=== PATIENT | male | born 1980 | race Asian ===

== ENCOUNTER 2019-08-09 09:34 | Emergency (ER) | payer OTHER ==
--- NOTE | 2019-08-09 09:54 | ED Physician Documentation ---
History of Present Illness - Stated complaint Stated Complaint: HEAD PAIN - Chief complaint Chief Complaint: Neuro - History obtained from History obtained from: Patient - History of Present Illness Timing: How many days ago - Additonal information Additional information: This is a 39-year-old man who presents with his complaints that 3 days ago he felt a little sick with a fever headache chills his whole family is been sick with a "flu" so he just got arrested he felt a little worse 2 days ago and then by that evening he was feeling better and yesterday was starting to feel little bit better until he started to get this headache in the frontal region is the worst that he is ever had. He took Tylenol for it around 8 AM. He ran fever up to 104.3 when he was initially sick and he thinks that he probably had a fever last night as well. He does complain of some mild nasal congestion and is blowing out some yellow mucus. He has not been coughing or felt short of breath. Denies chest pain or ear pain. He did have a panic attack 2 days ago while he was standing brushing his teeth where he felt really dizzy and his eyes were blurry but he went and laid down and it passed. He did not pass out. He has had no nausea or vomiting. Review of Systems Constitutional: reports: Fever, Chills Eyes: denies: Loss of vision Ears: denies: Ear pain Nose: reports: Congestion Throat: denies: Sore throat Cardiac: denies: Palpitations Respiratory: denies: Dyspnea, Cough GI: denies: Nausea, Vomiting Skin: denies: Rash Neurologic: reports: Near syncope, Headache. denies: Numbness, Syncope, LOC Endocrine: reports: Other (He is not a diabetic) PD PAST MEDICAL HISTORY - Past Medical History Cardiovascular: None Respiratory: None Endocrine/Autoimmune: None GI: Other : None HEENT: None Psych: None Musculoskeletal: None Derm: None - Past Surgical History General: Colonoscopy - Present Medications Home Medications: Ambulatory Orders Medication Instructions Recorded Confirmed Amoxicillin 875 mg PO BID #20 tablet 08/09/19 Hydrocodone/Acetaminophen 1 - 2 each PO Q6H PRN #14 tablet 08/09/19 [Hydrocodon-Acetaminophen 5-325] - Allergies Allergies/Adverse Reactions: Allergies Allergy/AdvReac Type Severity Reaction Status Date / Time No Known Drug Allergies Allergy Verified 03/28/16 18:10 - Social History Does the pt smoke?: No Smoking Status: Never smoker Does the pt drink ETOH?: Yes Does the pt have substance abuse?: No - Immunizations Immunizations are current?: Yes PD ED PE NORMAL - Vitals Vital signs reviewed: Yes - General General: Alert and oriented X 3, Well developed/nourished, Other (He keeps reaching up to his frontal forehead and across his eyes with his hand and cannot pushing his hand on his head.) - HEENT HEENT: Atraumatic, PERRL, EOMI, Ears normal, Moist mucous membranes, Other (There is some clear to white thicker mucus in both nostrils bilaterally) - Neck Neck: Supple, no meningeal sign, No adenopathy - Cardiac Cardiac: RRR, No murmur, Strong equal pulses - Respiratory Respiratory: No respiratory distress, Clear bilaterally - Abdomen Abdomen: Normal bowel sounds, Soft, No organomegaly - Derm Derm: Normal color, Warm and dry, No rash - Neuro Neuro: Alert and oriented X 3, 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, No motor deficit, No sensory deficit, Normal speech - Psych Psych: Normal mood, Normal affect Results - Vitals Vitals: Vital Signs - 24 hr 08/09/19 08/09/19 09:40 12:14 Temperature 36.5 C 37.1 C Heart Rate 70 69 Respiratory 18 20 Rate Blood Pressure 118/73 115/61 O2 Saturation 98 98 Oxygen O2 Source Room air - Labs Labs: Laboratory Tests 08/09/19 11:05 Influenza A (Rapid) Negative Influenza B (Rapid) Negative - Rads (name of study) CT head Radiology: EMP read contemporaneously (frontal and ethmoidal sinusitis), See rad report PD MEDICAL DECISION MAKING - ED course Complexity details: reviewed results, re-evaluated patient, d/w patient ED course: Influenza swab was negative. The patient's CT does confirm frontal and ethmoidal sinusitis. He had pain relief only to an 8 out of 10 after 600 mg of ibuprofen he was given hydrocodone tablet. He is discharged with prescriptions for amoxicillin 875 twice daily, hydrocodone for pain. May use ibuprofen [id number]. He is also instructed to use a nasal decongestant like Afrin, steam and [place] pot. Departure - Departure Disposition: 01 Home, Self Care Clinical Impression: Sinusitis, acute Qualifiers: Sinusitis location: unspecified location Recurrence: not specified as recurrent Qualified Code(s): J01.90 - Acute sinusitis, unspecified Condition: Good Instructions: ED Sinusitis Abx Tx Follow-Up: [facility] [Provider Group] Prescriptions: Amoxicillin 875 mg PO BID #20 tablet Hydrocodone/Acetaminophen [Hydrocodon-Acetaminophen 5-325] 1 - 2 each PO Q6H PRN #14 tablet PRN Reason: pain Comments: Take the amoxicillin as prescribed twice a day. Use Afrin nasal spray twice a day for the next 3 to 4 days but no more than that. Take ibuprofen 3 to 4 tablets every 8 hours with food for pain but also has an anti-inflammatory. Use the [place] pot twice a day and consider using a hypertonic solution in it. Steam can also help alleviate some of the congestion as discussed. You have a prescription for a few hydrocodone tablets if needed for severe pain until the antibiotics kick in. Do not take these and drive or operate machinery and do not take additional Tylenol with them. Follow-up if not improving in the next 48 hours or if your symptoms are worsening. Discharge Date/Time: 08/09/19 12:51
[2019-08-09] MEDS ORDERED: IBUPROFEN 600 MG TABLET PO STA (10:23)
--- NOTE | 2019-08-09 12:04 | CT Report ---
Reason: headache Procedure Date: 08/09/2019 Accession Number: [id number] / [id number] Procedure: CT - HEAD WO CPT Code: Final Report FULL RESULT: EXAM: CT HEAD EXAM DATE: 08/09/2019 10:49 AM. CLINICAL HISTORY: Headache. COMPARISON: None. TECHNIQUE: Multiaxial CT images were obtained from the foramen magnum to the vertex. Reformats: Sagittal and coronal. IV contrast: None. In accordance with CT protocol optimization, one or more of the following dose reduction techniques were utilized for this exam: automated exposure control, adjustment of mA and/or KV based on patient size, or use of iterative reconstructive technique. FINDINGS: Parenchyma: No intraparenchymal hemorrhage. No evidence of mass, midline shift, or CT findings of infarction. Gonzalez-white differentiation is distinct. Extraaxial Spaces: Normal for age. No subdural or epidural collections identified. Ventricles: Normal in size and position. Sinuses and Orbits: There is partial opacification of the bilateral frontal sinuses, ethmoid air cells, and sphenoid sinuses. There is an air-fluid level in the right sphenoid sinus. The maxillary sinuses are not included in the [id number]. The bilateral mastoid air cells are clear. The visualized portions of the orbits are unremarkable. Bones: No evidence of fracture or calvarial defect. Other: None. IMPRESSION: 1. No intracranial hemorrhage, mass-effect, CT evidence of acute infarct, or other acute intracranial abnormality. 2. Paranasal sinus disease involving the bilateral frontal sinuses, ethmoid air cells, and sphenoid sinuses. Findings raise the possibility of acute sinusitis. [facility]
[2019-08-09 12:14] VITALS: BP 115/61
[2019-08-09] MEDS ORDERED: HYDROcod/ACETAM 5/325 MG TABLET PO STA (12:40)
== END 2019-08-09 12:51 | disposition home or self-care (01) ==
LOC: ED 09:34
DX: J32.1 Chronic frontal sinusitis (principal); J32.2 Chronic ethmoidal sinusitis; J32.3 Chronic sphenoidal sinusitis
CPT/HCPCS: 70450; 87275; 87276; 99284; A9270

== ENCOUNTER 2020-12-11 13:03 | Outpatient (CLI) | payer BC | END 2020-12-11 13:04 | disposition home or self-care (01) | LOC: COV 13:03 | PROVIDERS: ATTEND Family Medicine | DX: R50.9 Fever, unspecified (principal); M79.10 Myalgia, unspecified site; R07.0 Pain in throat; Z20.822 Contact with and (suspected) exposure to COVID-19 ==

== ENCOUNTER 2023-10-11 08:00 | Outpatient (CLI) | payer SELFPAY | END 2023-10-11 23:59 | disposition home or self-care (01) | LOC: LAB.S 08:00 | PROVIDERS: ATTEND Emergency Medicine | DX: J02.9 Acute pharyngitis, unspecified (principal) | CPT/HCPCS: 87070 ==

== ENCOUNTER 2024-01-10 08:19 | Outpatient (CLI) | payer BC ==
[2024-01-10 14:55] LABS: ALBUMIN 4.5 g/dL (3.2-5.5); ALBUMIN/GLOBULIN RATIO 1.7 (1.0-2.2); BILIRUBIN,TOTAL 0.9 mg/dL (0.2-1.0); CALCIUM 9.8 mg/dL (8.5-10.3); CREATININE 0.8 mg/dL (0.6-1.3); TOTAL PROTEIN 7.1 g/dL (6.4-8.9)
== END 2024-01-10 08:20 | disposition home or self-care (01) ==
LOC: LAB.S 08:19
PROVIDERS: ATTEND Internal Medicine
DX: K51.00 Ulcerative (chronic) pancolitis without complications (principal)
CPT/HCPCS: 36415; 80053